=== PATIENT | male | born 1955 | race Two or more races ===

== ENCOUNTER 2020-02-17 14:55 | Emergency (ER) | payer SELFPAY ==
[~2020-02-17] VITALS: Ht 170.2 cm; Wt 72.6 kg
[2020-02-17 14:57] VITALS: BP 148/78
--- NOTE | 2020-02-17 14:57 | NUR ---
ED Nurse Note: Patient BIBA [id number] from [facility] c/o ETOH, unk amount. Pt is restless and disoriented. Unable to obtain information. No fever. Not in any distress.
--- NOTE | 2020-02-17 15:00 | Emergency Room Report ---
History of Present Illness General Chief Complaint: Alcohol Intoxication Source: EMS Present Illness HPI 64-year-old male presents with acute alcohol intoxication aggravated by drinking alcohol alleviated by not drinking alcohol severity is mild, constant patient was at a bus stop picked up by EMS after drinking no evidence of trauma patient is unable to answer questions currently intoxicated states he drank a lot caring for how much he states he may have a history of seizures. Patient presents for evaluation Allergies: Coded Allergies: UNABLE TO ASSESS (Unverified , 02/17/20) COVID-19 Screening Contact w/high risk pt: No Recent Travel to affected area: No Experienced COVID-19 symptoms?: No Patient History Past Medical History: see triage record Reviewed Nursing Documentation: PMH: Agreed; PSxH: Agreed Nursing Documentation-PMH Past Medical History: Deferred Review of Systems All Other Systems: negative except mentioned in HPI Physical Exam Vital Signs Date Time Temp Pulse Resp B/P (MAP) Pulse Ox O2 Delivery O2 Flow Rate FiO2 02/17/20 14:51 98.4 92 19 148/78 (101) 99 Room Air General Appearance: normal inspection, no apparent distress Head: normocephalic, atraumatic ENT: hearing grossly normal, normal voice Neck: full range of motion, supple Respiratory: no respiratory distress, speaking full sentences Neurologic: alert, responsive Psychiatric: mood/affect normal Skin: no rash Medical Decision Making Diagnostic Impression: Primary Impression: Acute alcoholic intoxication Qualified Codes: F10.920 - Alcohol use, unspecified with intoxication, uncomplicated ER Course 64-year-old male presents with acute alcohol intoxication patient will be observed until he is sober. Reevaluation 5:43 PM patient is walking upright asking for food Patient is currently stable for discharge will discharge patient Last Vital Signs Date Time Temp Pulse Resp B/P (MAP) Pulse Ox O2 Delivery O2 Flow Rate FiO2 02/17/20 14:51 98.4 92 19 148/78 (101) 99 Room Air Disposition: HOME, SELF-CARE Condition: Stable Referrals: [facility] Patient Instructions: Alcohol Intoxication, [id number]-Lnnj, Alcohol Use Disorder Additional Instructions: The patient was provided with discharge instructions, notified to follow-up with a primary care doctor and or specialist in the next 24-48 hours, and to return to the ED if they have worsening of their symptoms. Please note that this report is being documented using DRAGON technology. This can lead to erroneous entry secondary to incorrect interpretation by the dictating instrument. Kris Chase MD February 17, 2020 15:00
--- NOTE | 2020-02-17 17:40 | NUR ---
ED Nurse Note: Pt cleared by ERMD for discharge. DC instructions was given and explained to pt and verbalized understanding of teachings. All medical deviecs such as ID band removed. Pt is AAO x4, ambulatory and left with all personal belongings.
[2020-02-17 17:45] VITALS: BP 135/78
== END 2020-02-17 17:45 | disposition home or self-care (01) ==
LOC: EDBD 14:55 → EMR 15:24
DX: F10.920 Alcohol use, unspecified with intoxication, uncomplicated (principal)
CPT/HCPCS: 99281